=== PATIENT | female | born 1955 | race Caucasian/White ===

== ENCOUNTER 2017-10-10 13:00 | Outpatient (CLI) | payer OTHER ==
--- NOTE | 2017-10-10 17:43 | Ultrasound Report ---
ULTRASOUND LEFT ANKLE: 10/10/2017 CLINICAL INDICATION: Palpable abnormality. TECHNIQUE: Real-time scanning was performed with investment representative static images obtained. FINDINGS: Ultrasound of the palpable abnormality at the lateral left ankle was performed. At this site, there is a lipoma, measuring 3.8 x 3.7 x 0.6 cm. No sonographically suspicious findings are identified. IMPRESSION: LIPOMA, CORRELATING WITH THE PALPABLE ABNORMALITY. TD: 10/10/2017 17:42
== END 2017-10-10 13:01 | disposition home or self-care (01) ==
LOC: DI 13:00
PROVIDERS: ATTEND Physician Assistant Medical
DX: D17.24 Benign lipomatous neoplasm of skin and subcutaneous tissue of left leg (principal)
CPT/HCPCS: 76882

== ENCOUNTER 2021-03-03 11:39 | Outpatient (CLI) | payer OTHER ==
[2021-03-03 12:23] LABS: ALBUMIN 4.2 g/dL (3.2-5.5); ALKALINE PHOSPHATASE 69 IU/L (42-121); ALT ALANINE AMINOTRANSFERASE 13 IU/L (10-60); AST ASPARTATE AMINOTRANSFERASE 18 IU/L (10-42); BILIRUBIN,TOTAL 0.5 mg/dL (0.2-1.0); TOTAL PROTEIN 6.9 g/dL (6.7-8.2)
[2021-03-03 12:28] LABS: BILIRUBIN,URINE NEGATIVE (NEGATIVE); GLUCOSE, URINE (UA) NEGATIVE (NEGATIVE); KETONES,URINE (UA) NEGATIVE (NEGATIVE); LEUKOCYTE ESTERASE, URINE NEGATIVE (NEGATIVE); NITRITE,URINE NEGATIVE (NEGATIVE); OCCULT BLOOD,URINE SMALL (NEGATIVE); PROTEIN,URINE NEGATIVE (NEGATIVE); UROBILINOGEN,URINE 0.2 (NORMAL) E.U./dL (NORMAL)
[2021-03-03 12:30] LABS: BILIRUBIN,DIRECT < 0.1 mg/dL (0.1-0.5)
[2021-03-03 12:34] LABS: CLARITY,URINE CLEAR (CLEAR)
[2021-03-03 13:29] LABS: BACTERIA,URINE Rare /HPF (None Seen); RBC,URINE 0-5 /HPF (0-5); SQUAMOUS EPITHELIAL CELL,UR RARE Squamous (<= Few); WBC,URINE 0-3 /HPF (0-5)
== END 2021-03-03 11:40 | disposition home or self-care (01) ==
LOC: LAB 11:39
PROVIDERS: ATTEND Nurse Practitioner Family
DX: Z15.09 Genetic susceptibility to other malignant neoplasm (principal)
CPT/HCPCS: 36415; 80076; 81001; 87086